=== PATIENT | female | born 1945 | race Caucasian/White ===

== ENCOUNTER 2019-09-12 20:41 | Emergency (ER) | payer OTHER ==
[~2019-09-12] VITALS: Ht 157.5 cm; Wt 81.6 kg
[2019-09-12 20:54] VITALS: Ht 157.5 cm; Wt 81.6 kg
[2019-09-12 22:54] VITALS: BP 164/73
== END 2019-09-13 04:56 | disposition home or self-care (01) ==
LOC: ED 20:41
DX: S09.8XXA Other specified injuries of head, initial encounter (principal); E78.00 Pure hypercholesterolemia, unspecified; W01.0XXA Fall on same level from slipping, tripping and stumbling without subsequent striking against object, initial encounter; Y93.89 Activity, other specified; Y92.89 Other specified places as the place of occurrence of the external cause; Y99.8 Other external cause status